=== PATIENT | female | born 1985 | race Caucasian/White ===

== ENCOUNTER 2021-10-17 13:48 | Inpatient (IN) | payer OTHER ==
[2021-10-17 15:42] VITALS: BMI 30.8
[2021-10-17] MEDS ORDERED: MAG HYDROX/AL HYDROX/SIMETH 30 ML UNIT-DOSE CUP PO PRN (15:53)
[2021-10-17] MEDS ORDERED: DICYCLOMINE HCL 10 MG CAPSULE PO PRN (15:53)
[2021-10-17] MEDS ORDERED: BUPRENORPHINE HCL 150 MCG, BUPRENORPHINE HCL 75 MCG BC PRN (15:53)
[2021-10-17] MEDS ORDERED: MAGNESIUM HYDROX 2400MG/30ML ORAL SUSPENSION 30 ML CUP PO PRN (15:53)
[2021-10-17] MEDS ORDERED: IBUPROFEN 400 MG TABLET (FP) PO PRN (15:53)
[2021-10-17] MEDS ORDERED: ONDANSETRON *ODT* 4 MG TABLET SL PRN (15:53)
[2021-10-17] MEDS ORDERED: ACETAMINOPHEN 325 MG TABLET (FP) PO PRN ×2 (15:53)
[2021-10-17] MEDS ORDERED: NICOTINE 10 MG CARTRIDGE (INHALER) IH PRN (15:53)
[2021-10-17] MEDS ORDERED: LOPERAMIDE HCL 2 MG CAPSULE PO PRN (15:53)
[2021-10-17] MEDS ORDERED: MAGNESIUM CITRATE 300 ML BOTTLE PO PRN (15:53)
[2021-10-17] MEDS ORDERED: BISMUTH SUBSALICYLATE 524 MG/30 ML PO PRN (15:53)
[2021-10-17] MEDS ORDERED: BENZOCAINE/MENTHOL (CHLORASEPTIC ) LOZENGE MM PRN (15:53)
[2021-10-17] MEDS ORDERED: IBUPROFEN 600 MG TABLET (FP) PO PRN (15:53)
[2021-10-17] MEDS ORDERED: cloNIDine HCL 0.1 MG TABLET PO ONE (18:45)
[2021-10-17] MEDS ORDERED: BUPRENORPHINE HCL 150 MCG FILM BC ONE (19:26)
[2021-10-17] MEDS ORDERED: BUPRENORPHINE HCL 75 MCG FILM BC ONE (19:27)
[2021-10-17] MEDS ORDERED: BUPRENORPHINE HCL 150 MCG, BUPRENORPHINE HCL 75 MCG BC ONE (19:30)
[2021-10-17] MEDS: hydrOXYzine PAMOATE 25 MG CAPSULE (FP) PO SCH ×2 (19:46→22:19)
[2021-10-17] MEDS: PRENATAL VITAMINS W/ FOLIC ACID TABLET (FP) PO SCH (19:46)
[2021-10-17] MEDS: NICOTINE 14 MG/24 HOURS TOPICAL PATCH TD SCH (19:46)
[2021-10-17] MEDS ORDERED: cloNIDine HCL 0.1 MG TABLET PO PRN (19:53)
[2021-10-17] MEDS ORDERED: THIAMINE HCL 100 MG TABLET (FP) PO SCH (22:00)
[2021-10-17] MEDS ORDERED: MELATONIN 5 MG TABLETS PO SCH (22:00)
[2021-10-17] MEDS: diazePAM 5 MG TABLET PO PRN (22:19)
[2021-10-17] MEDS: METHOCARBAMOL 500 MG TABLET PO PRN (23:34)
[2021-10-18] MEDS ORDERED: BUPRENORPHINE HCL 150 MCG, BUPRENORPHINE HCL 75 MCG BC PRN
[2021-10-18] MEDS: diazePAM 5 MG TABLET PO PRN (04:53)
[2021-10-18] MEDS: METHOCARBAMOL 500 MG TABLET PO PRN (04:53)
[2021-10-18] MEDS ORDERED: BUPRENORPHINE HCL 150 MCG, BUPRENORPHINE HCL 75 MCG BC SCH (06:00)
[2021-10-18] MEDS: hydrOXYzine PAMOATE 25 MG CAPSULE (FP) PO SCH ×2 (06:47→10:32)
[2021-10-18 08:37] VITALS: BP 111/69; PULSE 62; TEMP 96.4
[2021-10-18] MEDS: NICOTINE 14 MG/24 HOURS TOPICAL PATCH TD SCH (10:32)
[2021-10-18] MEDS: PRENATAL VITAMINS W/ FOLIC ACID TABLET (FP) PO SCH (10:32)
[2021-10-18 14:36] LABS: CALCIUM 9.4 mg/dL (8.5-10.1); HEMATOCRIT 38.2 % (32.4-45.2); HEMOGLOBIN 12.8 GM/dL (10.7-15.3); MCH 26.2 pg (25.7-33.7); MCHC 33.5 g/dl (32.0-36.0); MEAN CELL VOLUME 78.3 fl (80-96); MEAN PLT VOLUME 7.6 fl (7.5-11.1); PLATELET COUNT 462 10^3/uL (134-434); RBC 4.88 M/mm3 (3.60-5.2); RDW 14.5 % (11.6-15.6); WHITE BLOOD COUNT 9.2 K/mm3 (4.0-10.0)
[2021-10-18 14:37] LABS: ALBUMIN 3.6 g/dl (3.4-5.0); BLOOD UREA NITROGEN 11.5 mg/dL (7-18)
[2021-10-18 14:40] LABS: CREATININE 0.7 mg/dL (0.55-1.3)
[2021-10-18 14:42] LABS: BILIRUBIN,TOTAL 0.2 mg/dL (0.2-1)
[2021-10-18 15:20] LABS: HIV INTERPRETATION NEGATIVE (NEGATIVE)
[2021-10-19] MEDS ORDERED: BUPRENORPHINE HCL 450 MCG FILM BC SCH (06:00)
[2021-10-20] MEDS ORDERED: BUPRENORPHINE/NALOXONE 4 MG/1 MG FILM PACKET SL SCH (06:00)
[2021-10-21] MEDS ORDERED: BUPRENORPHINE/NALOXONE 8 MG/2 MG FILM PACKET SL ONE (06:00)
== END 2021-10-18 12:03 | disposition left against medical advice (07) | DRG 770 ==
LOC: YASAS 13:48 → Y3N 17:45
PROVIDERS: ADMIT Allergy & Immunology; ATTEND Surgery
PROC: HZ2ZZZZ Detoxification Services for Substance Abuse Treatment (ICD-10-PCS; principal; 2021-10-17)
DX: F11.23 Opioid dependence with withdrawal (principal); F10.20 Alcohol dependence, uncomplicated; F14.20 Cocaine dependence, uncomplicated; F17.210 Nicotine dependence, cigarettes, uncomplicated; Z87.42 Personal history of other diseases of the female genital tract
CPT/HCPCS: 36415; 80053; 81025; 85027; 86780; 87389; 93005; 93010; C9803-CS; U0003; U0005

== ENCOUNTER 2021-10-22 01:41 | Inpatient (IN) | payer OTHER ==
[2021-10-22] MEDS ORDERED: MAGNESIUM CITRATE 300 ML BOTTLE PO PRN (03:05)
[2021-10-22] MEDS ORDERED: MAG HYDROX/AL HYDROX/SIMETH 30 ML UNIT-DOSE CUP PO PRN (03:05)
[2021-10-22] MEDS ORDERED: DICYCLOMINE HCL 10 MG CAPSULE PO PRN (03:05)
[2021-10-22] MEDS ORDERED: BISMUTH SUBSALICYLATE 524 MG/30 ML PO PRN (03:05)
[2021-10-22] MEDS ORDERED: MAGNESIUM HYDROX 2400MG/30ML ORAL SUSPENSION 30 ML CUP PO PRN (03:05)
[2021-10-22] MEDS ORDERED: BENZOCAINE/MENTHOL (CHLORASEPTIC ) LOZENGE MM PRN (03:05)
[2021-10-22] MEDS ORDERED: LOPERAMIDE HCL 2 MG CAPSULE PO PRN (03:05)
[2021-10-22] MEDS ORDERED: ONDANSETRON *ODT* 4 MG TABLET SL PRN (03:05)
[2021-10-22] MEDS ORDERED: IBUPROFEN 400 MG TABLET (FP) PO PRN (03:05)
[2021-10-22] MEDS ORDERED: IBUPROFEN 600 MG TABLET (FP) PO PRN (03:05)
[2021-10-22] MEDS ORDERED: NICOTINE 10 MG CARTRIDGE (INHALER) IH PRN (03:05)
[2021-10-22] MEDS ORDERED: ACETAMINOPHEN 325 MG TABLET (FP) PO PRN ×2 (03:05)
[2021-10-22 03:33] VITALS: BMI 30.8
[2021-10-22] MEDS ORDERED: methaDONE HCL 10 MG TABLET (FOR DETOX USE ONLY) PO ONE (09:50)
[2021-10-22] MEDS: METHOCARBAMOL 500 MG TABLET PO PRN ×2 (11:00→17:55)
[2021-10-22] MEDS: NICOTINE 21 MG/24 HOURS TOPICAL PATCH TD SCH (11:00)
[2021-10-22] MEDS: PRENATAL VITAMINS W/ FOLIC ACID TABLET (FP) PO SCH (11:02)
[2021-10-22] MEDS: ATOMOXETINE HCL 40 MG PO SCH (14:02)
[2021-10-22] MEDS: cloNIDine HCL 0.1 MG TABLET PO PRN ×2 (17:54→22:32)
[2021-10-22] MEDS ORDERED: THIAMINE HCL 100 MG TABLET (FP) PO SCH (22:00)
[2021-10-22] MEDS ORDERED: MELATONIN 5 MG TABLETS PO SCH (22:00)
[2021-10-22] MEDS ORDERED: SUVOREXANT 10 MG TABLET PO PRN (22:00)
[2021-10-23] MEDS ORDERED: methaDONE HCL 10 MG TABLET (FOR DETOX USE ONLY) ONE (09:17)
[2021-10-23] MEDS: ATOMOXETINE HCL 40 MG PO SCH (10:36)
[2021-10-23] MEDS: PRENATAL VITAMINS W/ FOLIC ACID TABLET (FP) PO SCH (10:36)
[2021-10-23] MEDS: NICOTINE 21 MG/24 HOURS TOPICAL PATCH TD SCH (10:37)
[2021-10-23 11:16] LABS: HEMATOCRIT 36.5 % (32.4-45.2); HEMOGLOBIN 12.4 GM/dL (10.7-15.3); MCH 26.4 pg (25.7-33.7); MCHC 33.9 g/dl (32.0-36.0); MEAN CELL VOLUME 77.7 fl (80-96); MEAN PLT VOLUME 7.1 fl (7.5-11.1); PLATELET COUNT 432 10^3/uL (134-434); RDW 14.7 % (11.6-15.6); WHITE BLOOD COUNT 7.5 K/mm3 (4.0-10.0)
[2021-10-23 13:09] LABS: ALBUMIN 3.4 g/dl (3.4-5.0); BLOOD UREA NITROGEN 11.4 mg/dL (7-18); CALCIUM 9.6 mg/dL (8.5-10.1)
[2021-10-23 13:12] LABS: CREATININE 0.7 mg/dL (0.55-1.3)
[2021-10-23 13:13] LABS: BILIRUBIN,TOTAL 0.3 mg/dL (0.2-1); TOT PROT 7.8 g/dl (6.4-8.2)
[2021-10-23 13:48] VITALS: BP 122/82; PULSE 88; TEMP 97.7
[2021-10-24] MEDS ORDERED: methaDONE HCL 10 MG TABLET (FOR DETOX USE ONLY) PO ONE (10:00)
[2021-10-26] MEDS ORDERED: methaDONE HCL 10 MG TABLET (FOR DETOX USE ONLY) PO ONE (10:00)
== END 2021-10-23 13:45 | disposition left against medical advice (07) | DRG 770 ==
LOC: YASAS 01:41 → Y6N 02:55
PROVIDERS: ADMIT Allergy & Immunology; ATTEND Allergy & Immunology
PROC: HZ2ZZZZ Detoxification Services for Substance Abuse Treatment (ICD-10-PCS; principal; 2021-10-22)
DX: F11.23 Opioid dependence with withdrawal (principal); F14.10 Cocaine abuse, uncomplicated; F17.210 Nicotine dependence, cigarettes, uncomplicated; F19.282 Other psychoactive substance dependence with psychoactive substance-induced sleep disorder; F90.9 Attention-deficit hyperactivity disorder, unspecified type; K21.9 Gastro-esophageal reflux disease without esophagitis; K58.9 Irritable bowel syndrome, unspecified; S01.21XA Laceration without foreign body of nose, initial encounter; W07.XXXA Fall from chair, initial encounter; Y92.238 Other place in hospital as the place of occurrence of the external cause; Z62.810 Personal history of physical and sexual abuse in childhood; Z28.310 Unvaccinated for COVID-19; Z88.5 Allergy status to narcotic agent
CPT/HCPCS: 36415; 70450-TC; 70486-TC; 72125-TC; 80053; 85027; 86780; 90715; 99285-25; C9803-CS; J0735; U0003; U0005